=== PATIENT | male | born 1970 | race Caucasian/White ===

== ENCOUNTER 2023-09-01 23:01 | Emergency (ER) | payer OTHER ==
[2023-09-01 23:32] VITALS: BP 143/85; O2SAT 98
--- NOTE | 2023-09-01 23:34 | ED Physician Documentation ---
History of Present Illness - Stated complaint Stated Complaint: FIT - Chief complaint Chief Complaint: General - History obtained from History obtained from: Patient, Police - Additonal information Additional information: Patient brought to ED by police for medical clearance for incarceration (fit for confinement). Patient is asymptomatic. He tells me he does not take any prescription medications and has no allergies to medications, no medical problems. PD PAST MEDICAL HISTORY - Past Medical History Past Medical History: No - Allergies Allergies/Adverse Reactions: Allergies Allergy/AdvReac Type Severity Reaction Status Date / Time No Known Drug Allergies Allergy Verified 09/01/23 23:11 PD ED PE NORMAL - Vitals Vital signs reviewed: Yes - General General: Alert and oriented X 3, No acute distress, Well developed/nourished - Cardiac Cardiac: RRR, No murmur - Respiratory Respiratory: No respiratory distress, Clear bilaterally - Neuro Neuro: Alert and oriented X 3 Results - Vitals Vitals: Vital Signs - 24 hr 09/01/23 23:11 Temperature 36.5 C Heart Rate 94 Respiratory 16 Rate Blood Pressure 143/85 H O2 Saturation 98 Oxygen O2 Source Room air PD Medical Decision Making - ED course ED course: Patient presents asymptomatic, brought in by police for medical clearance. No testing is indicated at this time. He is cleared for incarceration/fit for confinement. Departure - Departure Disposition: 01 Home, Self Care Clinical Impression: Encounter for medical screening examination Condition: Good Instructions: ED Screening Exam Medical Nonurgent Forms: PCP List Discharge Date/Time: 09/01/23 23:59
== END 2023-09-01 23:59 | disposition home or self-care (01) ==
LOC: ED 23:01
DX: Z02.89 Encounter for other administrative examinations (principal)
CPT/HCPCS: 99281; 99282